=== PATIENT | female | born 1980 | race Hispanic/Latino ===

== ENCOUNTER 2017-07-07 16:43 | Emergency (ER) | payer MEDICAID ==
[2017-07-07 16:53] VITALS: BP 119/67; PULSE 98; RESP 18; TEMP 99; O2SAT 99
--- NOTE | 2017-07-07 17:14 | ED PDOC ---
HPI: Back Time Seen by Provider: 07/07/17 17:00 Chief Complaint (Nursing): Back Pain Chief Complaint (Provider): Back Pain History Per: Patient History/Exam Limitations: no limitations Onset/Duration Of Symptoms: Days (x5 days) Additional Complaint(s): 37 y/o female presents to the emergency department with a complaint of lower back pain since 07/03/2017. Patient describes the pain as a knot in low back. She reports taking Advil around 10 am this morning but this did not help the pain. Patient denies radiation of pain, she denies any trauma or injury. Patient denies any history of lower back pain. No fever or chills, no dysuria or hematuria. Patient denies bowel or bladder dysfunction. Past Medical History Reviewed: Historical Data, Nursing Documentation, Vital Signs Vital Signs: Last Vital Signs Temp 99 F 07/07/17 16:50 Pulse 98 H 07/07/17 16:50 Resp 18 07/07/17 16:50 BP 119/67 07/07/17 16:50 Pulse Ox 99 07/07/17 16:50 - Medical History PMH: No Chronic Diseases - Surgical History Surgical History: (2) - Family History Family History: States: No Known Family Hx - Living Arrangements Living Arrangements: With Family - Social History Current smoker - smoking cessation education provided: Yes Alcohol: None Drugs: Denies - Home Medications Home Medications: Ambulatory Orders Medication Instructions Recorded Cyclobenzaprine [Cyclobenzaprine 10 mg PO TID PRN #20 tab 07/07/17 HCl] Naproxen [Naprosyn] 500 mg PO BID #20 tab 07/07/17 - Allergies Allergies/Adverse Reactions: Allergies Allergy/AdvReac Type Severity Reaction Status Date / Time shrimp Allergy RASH Verified 07/07/17 16:53 Review of Systems ROS Statement: Except As Marked, All Systems Reviewed And Found Negative Constitutional: Negative for: Fever Gastrointestinal: Negative for: Nausea, Vomiting, Abdominal Pain Genitourinary Female: Negative for: Dysuria, Frequency, Incontinence, Hematuria Musculoskeletal: Positive for: Back Pain (lower, no radiation of pain) Physical Exam - Reviewed Nursing Documentation Reviewed: Yes Vital Signs Reviewed: Yes - Physical Exam Appears: Positive for: Well, Non-toxic, Uncomfortable Head Exam: Positive for: ATRAUMATIC, NORMAL INSPECTION, NORMOCEPHALIC Skin: Positive for: Warm, Dry Neck: Positive for: Normal, Painless ROM Cardiovascular/Chest: Positive for: Regular Rate, Rhythm Respiratory: Positive for: Normal Breath Sounds Back: Positive for: Other (Tenderness along midline and lumbar spine region. No step off noted, negative bilateral straight leg raise, patient is able to heel and toe walk). Negative for: L CVA Tenderness, R CVA Tenderness Extremity: Positive for: Normal ROM. Negative for: Pedal Edema Neurologic/Psych: Positive for: Alert, Oriented (x3), Gait (steady) - Laboratory Results Urine POC: Negative - ECG O2 Sat by Pulse Oximetry: 99 (RA) Pulse Ox Interpretation: Normal - Other Rad L/S Spine x-ray X-Ray: Interpreted by Me, Viewed By Me X-Ray Interpretation: no fx, no dis Medical Decision Making Medical Decision Making: Time: 17:05 Initial Impression: Lower back pain Initial Plan: --Urine Preg --Tylenol 975 mg PO --Flexeril 10 mg PO --Toradol 30 mg IM --LS Spine x-ray Patient is aware of x-ray results, all questions answered. Patient reports improvement of pain after meds given. Prescriptions given for Naprosyn and Flexeril. Patient was advised to follow up with primary doctor in 1-2 days for further evaluation. Scribe Attestation: Documented by Vicki Wilson, acting as a scribe for Peace Cheung PA-C. Provider Scribe Attestation: All medical record entries made by the Scribe were at my direction and personally dictated by me. I have reviewed the chart and agree that the record accurately reflects my personal performance of the history, physical exam, medical decision making, and the department course for this patient. I have also personally directed, reviewed, and agree with the discharge instructions and disposition. Disposition - Clinical Impression Clinical Impression: Back strain - Patient ED Disposition Is Patient to be Admitted: No Counseled Patient/Family Regarding: Studies Performed, Diagnosis, Need For Followup, Rx Given - Disposition [facility]errals: [facility] [Provider Group] Disposition: Routine/Home Disposition Time: 18:24 Condition: IMPROVED Additional Instructions: Rest as much as possible and avoid heavy lifting. Take prescription meds as directed as needed for pain. Follow-up with primary doctor in 1-2 days. Prescriptions: Cyclobenzaprine [Cyclobenzaprine HCl] 10 mg PO TID PRN #20 tab PRN Reason: Muscle Spasm Naproxen [Naprosyn] 500 mg PO BID #20 tab Instructions: Back Pain (ED), Muscle Strain (ED) Forms: [employer] ([place])
--- NOTE | 2017-07-07 17:54 | RAD ---
PROCEDURE: Radiographs of the Lumbar Spine. HISTORY: low back pain COMPARISON: None available. FINDINGS: BONES: Alignment appears satisfactory. No listhesis. No acute displaced fracture identified. DISC SPACES: Unremarkable. OTHER FINDINGS: None. IMPRESSION: No acute displaced fracture or subluxation identified.
== END 2017-07-07 18:49 | disposition home or self-care (01) ==
LOC: H.ER 16:43
DX: M54.5 Low back pain (principal)
CPT/HCPCS: 72100; 81025; 96372; 99282; J1885

== ENCOUNTER 2017-11-19 11:50 | Emergency (ER) | payer MEDICAID ==
[2017-11-19 12:25] VITALS: O2SAT 100
--- NOTE | 2017-11-19 13:22 | ED PDOC ---
HPI: Back Time Seen by Provider: 11/19/17 12:28 Chief Complaint (Nursing): Back Pain Chief Complaint (Provider): Back pain History Per: Patient Additional Complaint(s): pt. into ER c/o lower back pain radiating into lt. leg x 2 weeks. pt. states she has noted intermittent numbness to lt. leg since saturday. no bowel or bladder dysfunction Past Medical History Reviewed: Nursing Documentation, Vital Signs Vital Signs: Last Vital Signs Temp 98.3 F 11/19/17 12:22 Pulse 100 H 11/19/17 12:22 Resp 19 11/19/17 12:22 BP 110/76 11/19/17 12:22 Pulse Ox 100 11/19/17 12:22 - Medical History PMH: No Chronic Diseases - Surgical History Surgical History: (2) - Family History Family History: States: Unknown Family Hx - Living Arrangements Living Arrangements: With Family - Social History Current smoker - smoking cessation education provided: No Alcohol: None Drugs: Denies - Home Medications Home Medications: Ambulatory Orders Medication Instructions Recorded Cyclobenzaprine [Cyclobenzaprine 10 mg PO TID PRN #20 tab 07/07/17 HCl] Naproxen [Naprosyn] 500 mg PO BID #20 tab 07/07/17 Cyclobenzaprine [Cyclobenzaprine 10 mg PO TID #20 tab 11/19/17 HCl] Ibuprofen [Motrin] 600 mg PO Q6 #20 tab 11/19/17 oxyCODONE/Acetaminophen [Percocet 1 ea PO Q6 PRN #5 tab 11/19/17 5/325 mg Tab] - Allergies Allergies/Adverse Reactions: Allergies Allergy/AdvReac Type Severity Reaction Status Date / Time shrimp Allergy RASH Verified 11/19/17 12:22 Review of Systems ROS Statement: Except As Marked, All Systems Reviewed And Found Negative Musculoskeletal: Positive for: Back Pain Physical Exam - Reviewed Nursing Documentation Reviewed: Yes Vital Signs Reviewed: Yes - Physical Exam Appears: Positive for: Well, Non-toxic, No Acute Distress Head Exam: Positive for: ATRAUMATIC, NORMAL INSPECTION, NORMOCEPHALIC Skin: Positive for: Normal Color, Warm, DRY Eye Exam: Positive for: EOMI, Normal appearance, PERRL ENT: Positive for: Normal ENT Inspection Neck: Positive for: Normal, Painless ROM Cardiovascular/Chest: Positive for: Regular Rate, Rhythm Respiratory: Positive for: CNT, Normal Breath Sounds Gastrointestinal/Abdominal: Positive for: Normal Exam, Bowel Sounds, Soft Back: Positive for: Normal Inspection, Vertebral Tenderness (LS spine), Other ( LS paraspinal tendenress) Extremity: Positive for: Normal ROM Neurologic/Psych: Positive for: Alert, Oriented - ECG O2 Sat by Pulse Oximetry: 100 Medical Decision Making Medical Decision Making: LS spine: NAD, as read by LAURE Pt medicated for pain, reports feeling greatly improved on re-eval able to ambulate with steady gait asking to go home Disposition - Clinical Impression Clinical Impression: Sciatica - Patient ED Disposition Is Patient to be Admitted: No - Disposition Disposition: Routine/Home Disposition Time: 14:00 Condition: STABLE Prescriptions: Cyclobenzaprine [Cyclobenzaprine HCl] 10 mg PO TID #20 tab Ibuprofen [Motrin] 600 mg PO Q6 #20 tab oxyCODONE/Acetaminophen [Percocet 5/325 mg Tab] 1 ea PO Q6 PRN #5 tab PRN Reason: Pain, Severe (8-10) Instructions: Sciatica (DC) Forms: [employer]) (Icelandic), [facility] ED School/Work Excuse
[2017-11-19] MEDS ORDERED: Oxycodone/Acetaminophen 5/325 mg Tab ONE (13:43)
[2017-11-19] MEDS: Oxycodone/Acetaminophen 5/325 mg Tab PO STA (13:50)
--- NOTE | 2017-11-19 14:07 | RAD ---
PROCEDURE: Radiographs of the Lumbar Spine. HISTORY: pain COMPARISON: No prior. FINDINGS: BONES: Normal alignment. No listhesis. No fracture. DISC SPACES: Unremarkable. OTHER FINDINGS: None. IMPRESSION: Unremarkable radiographs of the lumbar spine.
[2017-11-19 14:58] VITALS: BP 122/70; PULSE 76; RESP 18; TEMP 98
== END 2017-11-19 15:18 | disposition home or self-care (01) ==
LOC: H.ER 11:50
DX: M54.32 Sciatica, left side (principal)

== ENCOUNTER 2018-03-09 17:53 | Emergency (ER) | payer MEDICAID ==
[2018-03-09 17:59] VITALS: BP 110/69; RESP 16; TEMP 97.7; O2SAT 99
--- NOTE | 2018-03-09 18:13 | ED PDOC ---
Upper Extremity Pain/Injury Time Seen by Provider: 03/09/18 18:03 Chief Complaint (Nursing): Upper Extremity Problem/Injury Chief Complaint (Provider): right wrist pain History Per: Patient Additional Complaint(s): 37 y/o right hand dominant female presents with pain to right wrist and forearm for the past 3 days. She denies trauma or injury but states she does lifting and repetitive motions at work. 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 Patient took 2 advil yesterday but this did not help the pain. She denies numbness or tingling to affected area. PMD: [place] Past Medical History Reviewed: Historical Data, Nursing Documentation, Vital Signs Vital Signs: Last Vital Signs Temp 97.7 F 03/09/18 17:56 Pulse 100 H 03/09/18 17:56 Resp 16 03/09/18 17:56 BP 110/69 03/09/18 17:56 Pulse Ox 99 03/09/18 17:56 - Medical History PMH: No Chronic Diseases - Surgical History Surgical History: (2) Other surgeries: tubal ligation - Family History Family History: States: No Known Family Hx - Living Arrangements Living Arrangements: With Family - Social History Current smoker - smoking cessation education provided: Yes Alcohol: None Drugs: Denies - Home Medications Home Medications: Ambulatory Orders Medication Instructions Recorded Cyclobenzaprine [Cyclobenzaprine 10 mg PO TID PRN #20 tab 07/07/17 HCl] Naproxen [Naprosyn] 500 mg PO BID #20 tab 07/07/17 Cyclobenzaprine [Cyclobenzaprine 10 mg PO TID #20 tab 11/19/17 HCl] Ibuprofen [Motrin] 600 mg PO Q6 #20 tab 11/19/17 oxyCODONE/Acetaminophen [Percocet 1 ea PO Q6 PRN #5 tab 11/19/17 5/325 mg Tab] Cyclobenzaprine [Cyclobenzaprine 10 mg PO TID PRN #20 tab 03/09/18 HCl] Naproxen [Naprosyn] 500 mg PO BID #20 tab 03/09/18 - Allergies Allergies/Adverse Reactions: Allergies Allergy/AdvReac Type Severity Reaction Status Date / Time shrimp Allergy RASH Verified 03/09/18 17:55 Review of Systems ROS Statement: Except As Marked, All Systems Reviewed And Found Negative Constitutional: Negative for: Fever Cardiovascular: Negative for: Chest Pain Respiratory: Negative for: Shortness of Breath Musculoskeletal: Positive for: Other (right wrist pain) Physical Exam - Reviewed Nursing Documentation Reviewed: Yes Vital Signs Reviewed: Yes - Physical Exam Appears: Positive for: Well, Non-toxic, No Acute Distress Skin: Positive for: Normal Color. Negative for: Rash Eye Exam: Positive for: Normal appearance Neck: Positive for: Normal Extremity: Positive for: Tenderness (Tendeness to right wrist dorsally with no snuff box tenderness, strong right hand software sales executive). Negative for: Deformity Neurologic/Psych: Positive for: Alert, Oriented - Laboratory Results Urine POC: Negative (patient declined test, she has tubal ligation and denies possibility of ) - ECG O2 Sat by Pulse Oximetry: 99 Pulse Ox Interpretation: Normal - Other Rad right wrist x-ray X-Ray: Interpreted by Me, Viewed By Me X-Ray Interpretation: no fx, no dis Medical Decision Making Medical Decision Makin37 y/o female with right wrist pain Plan: IM toradol X-ray right wrist Patient aware of x-ray results. All questions answered. Velcro splint applied. Advised ice, rest, elevation. Rx naprosyn and flexeril given. Patient was referred to ortho operations research analyst for follow up. Procedures - Splinting Location: right wrist Pre-Made Type: velcro Pre-Proc Neuro Vasc Exam: normal Post-Proc Neuro Vasc Exam: normal Disposition - Clinical Impression Clinical Impression: Right wrist tendinitis - Patient ED Disposition Is Patient to be Admitted: No Counseled Patient/Family Regarding: Studies Performed, Diagnosis, Need For Followup, Rx Given, Smoking Cessation - Disposition Referrals: Saqib Troy III, MD [Staff Provider] - Disposition: Routine/Home Disposition Time: 18:19 Condition: STABLE Additional Instructions: Ice, rest and elevate affected area. Take rx meds as directed as needed for pain. Follow up with orthopedist or primary care doctor for any persistent symptoms. Prescriptions: Cyclobenzaprine [Cyclobenzaprine HCl] 10 mg PO TID PRN #20 tab PRN Reason: Muscle Spasm Naproxen [Naprosyn] 500 mg PO BID #20 tab Instructions: Wrist Sprain (DC), Tendonitis (DC) Forms: [employer] (Kazakh), [facility] ED School/Work Excuse
[2018-03-09 18:43] VITALS: PULSE 92
--- NOTE | 2018-03-10 08:49 | RAD ---
PROCEDURE: Right Wrist Radiographs. HISTORY: pain COMPARISON: None. FINDINGS: BONES: No acute fracture or destructive bony lesion identified. JOINTS: Normal. No dislocation. SOFT TISSUES: Normal. OTHER FINDINGS: None. IMPRESSION: Unremarkable right wrist radiographs.
== END 2018-03-09 18:42 | disposition home or self-care (01) ==
LOC: H.ER 17:53
DX: M65.841 Other synovitis and tenosynovitis, right hand (principal)
CPT/HCPCS: 29125; 73110; 96372; 99283; J1885

== ENCOUNTER 2018-06-22 17:32 | Emergency (ER) | payer MEDICAID ==
[2018-06-22] MEDS ORDERED: Albuterol-Ipratrop 3 mg / 0.5 (3 ml) UD INH STA (18:08)
--- NOTE | 2018-06-22 18:15 | ED PDOC ---
HPI: SOB/CHF/COPD Time Seen by Provider: 06/22/18 17:46 Chief Complaint (Nursing): Shortness Of Breath Chief Complaint (Provider): Shortness Of Breath History Per: Patient History/Exam Limitations: no limitations Onset/Duration Of Symptoms: Days (x3) Current Symptoms Are (Timing): Still Present Additional Complaint(s): 38 year old female with no significant past medical history presents to the ED with chest congestion onset . Patient reports she began feeling shortness of breath today. She admits to being a smoker, but denies cough, fever , chest pain, or any other medical complaints. Patient was given nebulizer treatments when she was younger. PMD: [place] Past Medical History Reviewed: Historical Data, Nursing Documentation, Vital Signs Vital Signs: Last Vital Signs Temp 98.4 F 06/22/18 22:07 Pulse 78 06/22/18 22:07 Resp 16 06/22/18 22:07 BP 102/60 06/22/18 22:07 Pulse Ox 100 06/23/18 02:57 - Medical History PMH: No Chronic Diseases - Surgical History Surgical History: (2) - Family History Family History: States: Unknown Family Hx - Social History Current smoker - smoking cessation education provided: Yes Ex-Smoker (has not smoked in the last 12 months): No - Home Medications Home Medications: Ambulatory Orders Medication Instructions Recorded Cyclobenzaprine [Cyclobenzaprine 10 mg PO TID PRN #20 tab 07/07/17 HCl] Naproxen [Naprosyn] 500 mg PO BID #20 tab 07/07/17 Cyclobenzaprine [Cyclobenzaprine 10 mg PO TID #20 tab 11/19/17 HCl] Ibuprofen [Motrin] 600 mg PO Q6 #20 tab 11/19/17 oxyCODONE/Acetaminophen [Percocet 1 ea PO Q6 PRN #5 tab 11/19/17 5/325 mg Tab] Cyclobenzaprine [Cyclobenzaprine 10 mg PO TID PRN #20 tab 03/09/18 HCl] Naproxen [Naprosyn] 500 mg PO BID #20 tab 03/09/18 Albuterol HFA [Ventolin HFA 90 2 puff IH [id number] #1 inh 06/22/18 mcg/actuation (8 g)] Docusate Sodium [Colace] 100 mg PO BID #60 capsule 06/22/18 Ferrous Sulfate 325 mg PO BID #60 tablet 06/22/18 - Allergies Allergies/Adverse Reactions: Allergies Allergy/AdvReac Type Severity Reaction Status Date / Time shrimp Allergy RASH Verified 06/22/18 17:42 Review of Systems ROS Statement: Except As Marked, All Systems Reviewed And Found Negative Constitutional: Negative for: Fever Cardiovascular: Positive for: Other (chest congestion ). Negative for: Chest Pain Respiratory: Positive for: Shortness of Breath. Negative for: Cough Physical Exam - Reviewed Nursing Documentation Reviewed: Yes Vital Signs Reviewed: Yes - Physical Exam Appears: Positive for: Well, Non-toxic, No Acute Distress Head Exam: Positive for: ATRAUMATIC, NORMOCEPHALIC Skin: Positive for: Normal Color, Warm, Dry Eye Exam: Positive for: Normal appearance, EOMI, PERRL Neck: Positive for: Normal Cardiovascular/Chest: Positive for: Regular Rate, Rhythm. Negative for: Murmur Respiratory: Positive for: Normal Breath Sounds. Negative for: Respiratory Distress Gastrointestinal/Abdominal: Positive for: Normal Exam, Soft. 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 Negative for: Pedal Edema, Deformity Neurologic/Psych: Positive for: Alert, Oriented (x3), Other (patient is able to speak in full sentences) - Laboratory Results Result Diagrams: 06/22/18 18:44 06/22/18 18:44 - ECG Interpretation Of ECG: NSR @ 92, no ST-T changes. O2 Sat by Pulse Oximetry: 99 (RA) Pulse Ox Interpretation: Normal Medical Decision Making Medical Decision Making: Time: 1756 Initial Impression: Dyspnea and bronchitis Initial Plan: --EKG --CMP --Urine preg --Urine dip --CBC with differentials --D Dimer --PTT --Prothrombin time --CXR --Duoneb 3 ml INH --Peak flow pre/post treatment CXR: Pending. Scribe Attestation: Documented by Adriana Bustillo, acting as a scribe for Eli Maciel MD Provider Scribe Attestation: All medical record entries made by the Scribe were at my direction and personally dictated by me. I have reviewed the chart and agree that the record accurately reflects my personal performance of the history, physical exam, medical decision making, and the department course for this patient. I have also personally directed, reviewed, and agree with the discharge instructions and disposition. Disposition - Clinical Impression Clinical Impression: Symptomatic anemia - Patient ED Disposition Is Patient to be Admitted: Yes - Disposition Disposition Time: 19:51 Condition: STABLE - Pt Status Changed To: Hospital Disposition Of: Observation - POA Present On Arrival: None
[2018-06-22] MEDS ORDERED: Albuterol-Ipratrop 3 mg / 0.5 (3 ml) UD ONE (18:19)
[2018-06-22 18:49] LABS: BASO # 0.1 K/uL (0.0-0.2); BASO % 0.6 % (0.0-2.0); EOS # 0.2 K/uL (0.0-0.7); HEMOGLOBIN 8.6 g/dL (12.0-16.0); LYMPH # 2.3 K/uL (1.0-4.3); LYMPH % 25.2 % (20.0-40.0); MEAN CELL VOLUME 66.1 fl (81.0-99.0); MEAN CORPUSCULAR HEMOGLOBIN 20.1 pg (27.0-31.0); MEAN CORPUSCULAR HGB CONC 30.4 g/dL (33.0-37.0); MEAN PLATELET VOLUME 9.5 fl (7.2-11.7); MONO # 0.8 K/uL (0.0-0.8); MONO % 8.5 % (0.0-10.0); NEUT # 5.7 K/uL (1.8-7.0); NEUT % 63.7 % (50.0-75.0); RBC 4.29 Mil/uL (3.80-5.20); RED CELL DISTRIBUTION WIDTH 17.9 % (11.5-14.5)
[2018-06-22 18:58] LABS: PROTHROMBIN TIME 11.3 Seconds (9.8-13.1)
[2018-06-22 19:00] LABS: ALB/GLOB RATIO 1.3 (1.0-2.1); ALBUMIN 3.9 g/dL (3.5-5.0); ALT/SGPT 28 U/L (9-52); AST/SGOT 24 U/L (14-36); BLOOD UREA NITROGEN 18 mg/dl (7-17); CALCIUM 9.2 mg/dL (8.4-10.2); GFR NON-AFRICAN AMERICAN > 60; PARTIAL THROMBOPLASTIN TIME 29.1 Seconds (25.6-37.1)
[2018-06-22 19:01] LABS: D DIMER < 200 ng/mlDDU (0-230)
[2018-06-22 20:50] VITALS: RESP 16
[2018-06-22] MEDS ORDERED: Albuterol-Ipratrop 3 mg / 0.5 (3 ml) UD INH PRN (20:59)
[2018-06-22 22:10] VITALS: BP 102/60; PULSE 78; TEMP 98.4
--- NOTE | 2018-06-22 22:53 | ED PDOC ---
- Laboratory Results Result Diagrams: 06/22/18 18:44 06/22/18 18:44 - ECG O2 Sat by Pulse Oximetry: 100 - Progress Re-evaluation Time: 22:00 Condition: Re-examined, Improved Medical Decision Making Medical Decision Makin Patient is feeling improved and wishes to go home. [id number] Per Yann Schumacher patient does not go to [facility]. Disposition Doctor Will See Patient In The: Office Counseled Patient/Family Regarding: Studies Performed, Diagnosis - Clinical Impression Clinical Impression: Bronchitis, Anemia - POA Present On Arrival: None - Disposition Disposition: AGAINST MEDICAL ADVICE Disposition Time: 22:05 Condition: GOOD Against Medical Advice - AMA Patient Left Against Medical Advice: The patient declines admission to the hospital and wishes to leave the Emergency Department. This action is against my medical advice. This decision was made with informed refusal. The patient was told that admission to the hospital is necessary. Explanation of the reasons why were discussed. The risks of leaving were explained to the patient and include, but are not limited to, worsening of known or currently unknown conditions, permanent disability and from undiagnosed or untreated conditions. The patient has the capacity to make this informed decision and understands my explanation of the current medical problem and risks of leaving. The patient voluntarily accepts these risks and signed an AMA form documenting our conversation. The patient was given the opportunity to ask questions and reconsider. The patient was encouraged to return to the Emergency Department at any time for further care.
--- NOTE | 2018-06-23 08:45 | RAD ---
Date of service: 06/22/2018 HISTORY: SOB COMPARISON: No prior. FINDINGS: LUNGS: No active pulmonary disease. PLEURA: No significant pleural effusion identified, no pneumothorax apparent. CARDIOVASCULAR: Normal. OSSEOUS STRUCTURES: No significant abnormalities. VISUALIZED UPPER ABDOMEN: Normal. OTHER FINDINGS: None. IMPRESSION: No acute cardiopulmonary disease appreciated.
[2018-06-23] MEDS ORDERED: guaiFENesin-DM 600-30 mg ER Tab PO SCH (09:00)
--- NOTE | 2018-06-23 09:27 | CARD ---
APPROVED REPORT Date of service: 06/22/2018 <Conclusion> Normal sinus rhythm Normal ECG
[2018-06-23 14:40] VITALS: O2SAT 99
== END 2018-06-22 23:14 | disposition left against medical advice (07) ==
LOC: H.ER 17:32 → UNDOADMIN 19:51 → H.ERHOLD 19:51 → UNDODISIN 23:14
DX: D64.9 Anemia, unspecified (principal); J40 Bronchitis, not specified as acute or chronic

== ENCOUNTER 2018-08-02 17:59 | Emergency (ER) | payer SELFPAY ==
[2018-08-02 18:04] VITALS: BP 149/75; PULSE 103; RESP 16; TEMP 96.7; O2SAT 98
[2018-08-02] MEDS ORDERED: Oxycodone/Acetaminophen 5/325 mg Tab PO STA (18:25)
--- NOTE | 2018-08-02 18:30 | ED PDOC ---
HPI: Dental Pain/Injury Time Seen by Provider: 08/02/18 18:04 Chief Complaint (Nursing): Dental Pain Chief Complaint (Provider): Left lower dental pain x 2 days History Per: Patient History/Exam Limitations: no limitations Onset/Duration Of Symptoms: Days (2) Current Symptoms Are (Timing): Still Present Additional Complaint(s): 38 yo female presents for evaluation of left lower dental pain x 2 days. Pt states she was seen by an oral surgeon 2 weeks ago and had one tooth extracted from the area. Pt states they were going to extract a second in the lower left however she began to feel pain and they stopped. Pt reports pain for 2 days. Pt states she was taking motrin but it did not help. No motrin today for pain. No fever/chills. No drainage. Past Medical History Reviewed: Historical Data, Nursing Documentation, Vital Signs Vital Signs: Last Vital Signs Temp 96.7 F L 08/02/18 18:02 Pulse 103 H 08/02/18 18:02 Resp 16 08/02/18 18:02 BP 149/75 08/02/18 18:02 Pulse Ox 98 08/02/18 18:02 - Medical History PMH: No Chronic Diseases - Surgical History Surgical History: (2) - Family History Family History: States: Unknown Family Hx - Living Arrangements Living Arrangements: With Family - Social History Current smoker - smoking cessation education provided: No Alcohol: None - Home Medications Home Medications: Ambulatory Orders Medication Instructions Recorded Cyclobenzaprine [Cyclobenzaprine 10 mg PO TID PRN #20 tab 07/07/17 HCl] Naproxen [Naprosyn] 500 mg PO BID #20 tab 07/07/17 Cyclobenzaprine [Cyclobenzaprine 10 mg PO TID #20 tab 11/19/17 HCl] Ibuprofen [Motrin] 600 mg PO Q6 #20 tab 11/19/17 oxyCODONE/Acetaminophen [Percocet 1 ea PO Q6 PRN #5 tab 11/19/17 5/325 mg Tab] Cyclobenzaprine [Cyclobenzaprine 10 mg PO TID PRN #20 tab 03/09/18 HCl] Naproxen [Naprosyn] 500 mg PO BID #20 tab 03/09/18 Albuterol HFA [Ventolin HFA 90 2 puff IH [id number] #1 inh 06/22/18 mcg/actuation (8 g)] Docusate Sodium [Colace] 100 mg PO BID #60 capsule 06/22/18 Ferrous Sulfate 325 mg PO BID #60 tablet 06/22/18 Amoxicillin/Clavulanate [Augmentin 1 tab PO BID #20 tab 08/02/18 875 MG-125 MG] oxyCODONE/Acetaminophen [Percocet 1 ea PO Q6H PRN #10 tab 08/02/18 5/325 mg Tab] - Allergies Allergies/Adverse Reactions: Allergies Allergy/AdvReac Type Severity Reaction Status Date / Time shrimp Allergy RASH Verified 08/02/18 18:02 Review of Systems ROS Statement: Except As Marked, All Systems Reviewed And Found Negative Constitutional: Negative for: Fever, Chills ENT: Negative for: Ear Pain, Throat Pain Gastrointestinal: Negative for: Nausea, Vomiting, Abdominal Pain, Diarrhea Physical Exam - Reviewed Nursing Documentation Reviewed: Yes Vital Signs Reviewed: Yes - Physical Exam Appears: Positive for: Well, Non-toxic, No Acute Distress Head Exam: Positive for: ATRAUMATIC, NORMAL INSPECTION, NORMOCEPHALIC Skin: Positive for: Normal Color, Warm, DRY ENT: Positive for: Other ((+) dental decay, left lower; no abscess formation ). Negative for: Normal ENT Inspection Neck: Positive for: Normal Cardiovascular/Chest: Negative for: Bradycardia, Tachycardia Respiratory: Negative for: Accessory Muscle Use, Respiratory Distress Back: Positive for: Normal Inspection Extremity: Positive for: Normal ROM Neurologic/Psych: Positive for: Alert, Oriented, Gait - ECG O2 Sat by Pulse Oximetry: 98 Disposition - Clinical Impression Clinical Impression: Dental caries - Patient ED Disposition Is Patient to be Admitted: No Counseled Patient/Family Regarding: Diagnosis, Need For Followup, Rx Given - Disposition [facility]] Disposition: Routine/Home Disposition Time: 18:26 Condition: GOOD Prescriptions: Amoxicillin/Clavulanate [Augmentin 875 MG-125 MG] 1 tab PO BID #20 tab oxyCODONE/Acetaminophen [Percocet 5/325 mg Tab] 1 ea PO Q6H PRN #10 tab PRN Reason: Pain, Severe (8-10) Instructions: Tooth Decay, Adult, Dental Pain
[2018-08-02] MEDS ORDERED: Oxycodone/Acetaminophen 5/325 mg Tab ONE (18:33)
== END 2018-08-02 18:54 | disposition home or self-care (01) ==
LOC: H.ER 17:59
DX: K02.9 Dental caries, unspecified (principal)

== ENCOUNTER 2018-09-21 22:53 | Emergency (ER) | payer SELFPAY ==
[2018-09-21 22:59] VITALS: TEMP 97.7
--- NOTE | 2018-09-21 23:04 | ED PDOC ---
HPI: Back Time Seen by Provider: 09/21/18 22:59 Chief Complaint (Nursing): Back Pain Chief Complaint (Provider): Back Pain History Per: Patient History/Exam Limitations: no limitations Onset/Duration Of Symptoms: Days (since yesterday morning) Current Symptoms Are (Timing): Still Present Quality Of Discomfort: Aching Additional Complaint(s): Patient is a 38 year old female who presets to the ED for evaluation of right lower back/side pain radiating to the groin/hip and down the right lower extremity. 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 Patient denies any trauma or falls. Patient denies: fever, N/V/D, urinary symptoms, hematuria, history of renal colic, abdominal pain, chest pain, SOB/cough, rash, numbness/weakness, saddle anesthesia, incontinence, paresthesias. PMD: none LMP 2 weeks ago Past Medical History Reviewed: Historical Data, Nursing Documentation, Vital Signs Vital Signs: Last Vital Signs Temp 97.7 F 09/21/18 22:56 Pulse 104 H 09/21/18 22:56 Resp 16 09/21/18 22:56 BP 122/77 09/21/18 22:56 Pulse Ox 97 09/21/18 22:56 - Medical History PMH: No Chronic Diseases - Surgical History Surgical History: (2) - Family History Family History: States: Unknown Family Hx - Social History Current smoker - smoking cessation education provided: Yes (1/2 ppd) Drugs: Denies - Home Medications Home Medications: Ambulatory Orders Medication Instructions Recorded Cyclobenzaprine [Cyclobenzaprine 10 mg PO TID PRN #20 tab 07/07/17 HCl] Naproxen [Naprosyn] 500 mg PO BID #20 tab 07/07/17 Cyclobenzaprine [Cyclobenzaprine 10 mg PO TID #20 tab 11/19/17 HCl] Ibuprofen [Motrin] 600 mg PO Q6 #20 tab 11/19/17 oxyCODONE/Acetaminophen [Percocet 1 ea PO Q6 PRN #5 tab 11/19/17 5/325 mg Tab] Cyclobenzaprine [Cyclobenzaprine 10 mg PO TID PRN #20 tab 03/09/18 HCl] Naproxen [Naprosyn] 500 mg PO BID #20 tab 03/09/18 Docusate Sodium [Colace] 100 mg PO BID #60 capsule 06/22/18 RX: Albuterol HFA [Ventolin HFA 90 2 puff IH [id number] #1 inh 06/22/18 mcg/actuation (8 g)] RX: Ferrous Sulfate 325 mg PO BID #60 tablet 06/22/18 Amoxicillin/Clavulanate [Augmentin 1 tab PO BID #20 tab 08/02/18 875 MG-125 MG] oxyCODONE/Acetaminophen [Percocet 1 ea PO Q6H PRN #10 tab 08/02/18 5/325 mg Tab] Cyclobenzaprine [Cyclobenzaprine 10 mg PO Q8 PRN #12 tab 09/22/18 HCl] RX: Naproxen 500 mg PO BID PRN #20 tab 09/22/18 - Allergies Allergies/Adverse Reactions: Allergies Allergy/AdvReac Type Severity Reaction Status Date / Time shrimp Allergy RASH Verified 08/02/18 18:02 Review of Systems ROS Statement: Except As Marked, All Systems Reviewed And Found Negative Constitutional: Negative for: Fever Cardiovascular: Negative for: Chest Pain Gastrointestinal: Negative for: Nausea, Vomiting, Diarrhea Genitourinary Female: Negative for: Dysuria, Hematuria Musculoskeletal: Positive for: Back Pain (right) Neurological: Negative for: Weakness, Numbness Physical Exam - Reviewed Nursing Documentation Reviewed: Yes Vital Signs Reviewed: Yes - Physical Exam Appears: Positive for: Well, Non-toxic, No Acute Distress Head Exam: Positive for: ATRAUMATIC, NORMOCEPHALIC Skin: Positive for: Normal Color, Warm, Dry Eye Exam: Positive for: Normal appearance ENT: Positive for: Other (Mucus membranes moist. Airway patent (-) stridor. ) Neck: Positive for: Painless ROM, Supple Cardiovascular/Chest: Positive for: Regular Rate, Rhythm Respiratory: Positive for: Normal Breath Sounds Gastrointestinal/Abdominal: Positive for: Soft, Other (right flank tenderness). Negative for: Tenderness, Distended, Guarding Back: Positive for: Other (right paralumbar tenderness). Negative for: L CVA Tenderness, R CVA Tenderness, Vertebral Tenderness Extremity: Positive for: Normal ROM. Negative for: Deformity Neurologic/Psych: Positive for: Alert, Oriented (x3), Gait (steady in ED). Negative for: Motor/Sensory Deficits, Aphasia, Facial Droop - Laboratory Results Urine POC: Negative Urine dip results: Positive for: Leukocyte Esterase (trace), Ketones (trace), Protein (trace). Negative for: Blood, Nitrate, Glucose, Bilirubin - ECG O2 Sat by Pulse Oximetry: 97 (RA) Pulse Ox Interpretation: Normal Medical Decision Making Medical Decision Making: Initial Impression: back/flank pain Plan: -Upreg -Udip -UDS -Toradol 15mg IM -Flexeril 10mg PO (not driving home) -Re-evaluation 5 Udip reviewed. U/A and U/C ordered. 0005 Repeat HR: 96 U/A unremarkable. On re-evaluation, patient reports improvement of symptoms. On exam, patient remains AAOx3, in no acute distress. Lungs clear to auscultation, cardiac RRR, abdomen soft, non-tender, repeat neuro exam shows no focal findings. Vitals stable. Lab/Diagnostic results d/w the patient in great detail. Diagnosis of acute back/flank pain d/w the patient. Based on history, exam and diagnostic results, plan will be for outpatient follow up with clinic. Patient instructed to follow-up with pmd / referral provided / the clinic in 1- 2 days without fail. Advised to take medication as prescribed. Return to the emergency room at any time for any new or worsening symptoms. Patient states she fully agrees with and understands discharge instructions. States that she agrees with the plan and disposition. Verbalized and repeated discharge instructions and plan. I have given the patient opportunity to ask any additional questions. Disposition - Clinical Impression Clinical Impression: Flank pain, Back pain - Patient ED Disposition Is Patient to be Admitted: No Counseled Patient/Family Regarding: Studies Performed, Diagnosis, Need For Followup, Rx Given - Disposition Referrals: [facility] [Outside] Corbin Doshi MD [Medical Doctor] - Disposition: Routine/Home Disposition Time: 00:05 Condition: STABLE Additional Instructions: The emergency medical care you received today was directed at your acute symptoms. If you were prescribed any medication, please fill it and take as directed. It may take several days for your symptoms to resolve. Return to the Emergency Department if your symptoms worsen, do not improve, or if you have any other problems. Please contact your doctor in 2 days for re-evaluation and follow up / or call one of the physicians/clinics you have been referred to that are listed on the Patient Visit Information form that is included in your discharge packet. Bring any paperwork you were given at discharge with you along with any medications you are taking to your follow up visit. Our treatment cannot replace ongoing medical care by a primary care provider (PCP) outside of the emergency department. Prescriptions: Cyclobenzaprine [Cyclobenzaprine HCl] 10 mg PO Q8 PRN #12 tab PRN Reason: Muscle Spasm RX: Naproxen 500 mg PO BID PRN #20 tab PRN Reason: Pain, Moderate (4-7) Instructions: Low Back Pain (DC), Flank Pain, Muscle Spasms (DC), Muscle and Bone Pain (DC) Forms: etouches (Mauritian) Print Language: CHINESE - POA Present On Arrival: None Results - Lab Results Lab Results: 09/21/18 09/21/18 23:30 23:30 Urine Color Yellow Urine Clarity Cloudy Urine pH 8.0 Ur Specific Nixa 1.024 Urine Protein 30 Urine Glucose (UA) Neg Urine Ketones Negative Urine Blood Negative Urine Nitrate Negative Urine Bilirubin Negative Urine Urobilinogen 2.0 H Ur Leukocyte Esterase Negative Urine RBC (Auto) 2 Urine Microscopic WBC 3 Ur Squamous Epith Cells 3 Amorphous Sediment Rare H Urine Opiates Screen Negative Urine Methadone Screen Negative Ur Barbiturates Screen Negative Ur Phencyclidine Scrn Negative Ur Amphetamines Screen No result U Benzodiazepines Scrn Negative U Oth Cocaine Metabols Negative U Cannabinoids Screen Negative
[2018-09-21 23:41] LABS: SQUAMOUS EPITHIAL 3 /hpf (0-5); URINE AMORPHOUS SEDIMENT RARE /ul (<OCC); URINE BILIRUBIN NEGATIVE (NEGATIVE); URINE BLOOD NEGATIVE (NEGATIVE); URINE CLARITY CLOUDY (Clear); URINE COLOR YELLOW (YELLOW); URINE GLUCOSE (UA) NEG (NEGATIVE); URINE PROTEIN 30 mg/dL (NEGATIVE)
[2018-09-21 23:55] LABS: URINE LEUKOCYTE ESTERASE NEGATIVE Leu/uL (Negative)
[2018-09-21 23:56] LABS: BARBITURATES, UR NEGATIVE (NEGATIVE); BENZODIAZEPINES, UR NEGATIVE (NEGATIVE); OPIATES, UR NEGATIVE (NEGATIVE); PHENCYCLIDINE, UR NEGATIVE (NEGATIVE)
[2018-09-22 00:15] VITALS: BP 103/59; PULSE 96; RESP 18
[2018-09-24 17:06] VITALS: O2SAT 97
== END 2018-09-22 00:15 | disposition home or self-care (01) ==
LOC: H.ER 22:53
DX: R10.9 Unspecified abdominal pain (principal); M54.9 Dorsalgia, unspecified
CPT/HCPCS: 81003; 81025; 87086; 96372; 99283; G0480; J1885

== ENCOUNTER 2019-01-06 12:07 | Emergency (ER) | payer MEDICAID ==
[2019-01-06 12:12] VITALS: BMI 24.2
[2019-01-06 12:14] VITALS: BP 112/70; PULSE 95; RESP 17; TEMP 98.4; O2SAT 97
--- NOTE | 2019-01-06 15:00 | ED PDOC ---
Upper Extremity Pain/Injury Time Seen by Provider: 01/06/19 12:21 Chief Complaint (Nursing): Upper Extremity Problem/Injury Chief Complaint (Provider): Upper Extremity Problem/Injury History Per: Patient History/Exam Limitations: no limitations Onset/Duration Of Symptoms: Days (x1 week) Current Symptoms Are (Timing): Still Present Additional Complaint(s): Patient is a 38 year old female with no past medical history, who presents to the emergency department complaining of pain form left elbow to wrist that is worse with certain movements, onset was x1 week. 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 Patient further reports that pain is worse at work this morning when she was lifting a heavy box. She has been taking ibuprofen with minimal relief; her last dose at 7am today. Patient denies having any other injuries, decreased ROM, numbness or tingling, changes in skin color. She goes to the clinic right now but she has recently gotten insurance and will be going to [place]. Her LMP just ended. PMD: clinic/[place] Past Medical History Reviewed: Historical Data, Nursing Documentation, Vital Signs Vital Signs: Last Vital Signs Temp 98.4 F 01/06/19 12:12 Pulse 95 H 01/06/19 12:12 Resp 17 01/06/19 12:12 BP 112/70 01/06/19 12:12 Pulse Ox 97 01/06/19 12:12 - Medical History PMH: No Chronic Diseases - Surgical History Surgical History: (2) - Family History Family History: States: Unknown Family Hx - Home Medications Home Medications: Ambulatory Orders Medication Instructions Recorded Cyclobenzaprine [Cyclobenzaprine 10 mg PO TID PRN #20 tab 07/07/17 HCl] Naproxen [Naprosyn] 500 mg PO BID #20 tab 07/07/17 Cyclobenzaprine [Cyclobenzaprine 10 mg PO TID #20 tab 11/19/17 HCl] Ibuprofen [Motrin] 600 mg PO Q6 #20 tab 11/19/17 oxyCODONE/Acetaminophen [Percocet 1 ea PO Q6 PRN #5 tab 11/19/17 5/325 mg Tab] Cyclobenzaprine [Cyclobenzaprine 10 mg PO TID PRN #20 tab 03/09/18 HCl] Naproxen [Naprosyn] 500 mg PO BID #20 tab 06/10/18 Albuterol HFA [Ventolin HFA 90 2 puff IH [id number] #1 inh 06/22/18 mcg/actuation (8 g)] Docusate Sodium [Colace] 100 mg PO BID #60 capsule 06/22/18 Ferrous Sulfate 325 mg PO BID #60 tablet 06/22/18 Amoxicillin/Clavulanate [Augmentin 1 tab PO BID #20 tab 08/02/18 875 MG-125 MG] oxyCODONE/Acetaminophen [Percocet 1 ea PO Q6H PRN #10 tab 08/02/18 5/325 mg Tab] Cyclobenzaprine [Cyclobenzaprine 10 mg PO Q8 PRN #12 tab 09/22/18 HCl] Naproxen 500 mg PO BID PRN #20 tab 09/22/18 Naproxen 500 mg PO BID PRN #20 tab 01/06/19 - Allergies Allergies/Adverse Reactions: Allergies Allergy/AdvReac Type Severity Reaction Status Date / Time shrimp Allergy RASH Verified 08/02/18 18:02 Review of Systems ROS Statement: Except As Marked, All Systems Reviewed And Found Negative Musculoskeletal: Positive for: Other (left elbow and wrist pain) Physical Exam - Reviewed Nursing Documentation Reviewed: Yes Vital Signs Reviewed: Yes - Physical Exam Comments: GENERAL APPEARANCE: Patient is awake, alert, oriented x 3, in no acute distress. SKIN: Warm, dry; (-) cyanosis. (-) changes CHEST AND RESPIRATORY: (-) chest wall tenderness. Lungs: (-) rales, (-) rhonchi, (-) wheezes; breath sounds equal bilaterally. HEART AND CARDIOVASCULAR: (-) irregularity; (-) murmur, (-) gallop. EXTREMITIES: Left upper extremity: Distal pulses 2+, Capillary refill less than 2 seconds, (+) Full ROM, (+) good hand php developer strength, (+) mild lateral epicondyle tenderness; (+) pain with resisted extension of the wrist. (-) swelling, (-) skin changes, (-)deformity, motor and sensation intact NEURO AND PSYCH: Mental status as above. - ECG O2 Sat by Pulse Oximetry: 97 (RA) Pulse Ox Interpretation: Normal Medical Decision Making Medical Decision Making: Time: 1226 initial impression: lateral epicondylitis Plan: --Toradol 30 mg IM Time: 1325 --Patient is feeling better. --Informed patient about epicondylitis, pt with repetitive movements at work, pain with resisted wrist extension, consistent with lateral epicondylitis --Discussed with patient on rest, ice, elevation, NSAIDs, and exercises. Discussed diagnosis, treatment, return precautions and f/u with pt who is understanding, in agreement and stable for dc ---- Scribe Attestation: Documented by Pierce Dale acting as a scribe for Bentley Gonzales PA-C. Provider Scribe Attestation: All medical record entries made by the Scribe were at my direction and personally dictated by me. I have reviewed the chart and agree that the record accurately reflects my personal performance of the history, physical exam, medical decision making, and the department course for this patient. I have also personally directed, reviewed, and agree with the discharge instructions and disposition. Disposition - Clinical Impression Clinical Impression: Epicondylitis - Patient ED Disposition Is Patient to be Admitted: No Counseled Patient/Family Regarding: Studies Performed, Diagnosis, Need For Followup, Rx Given - Disposition Referrals: [facility] [Provider Group] [facility] [Outside] Disposition: Routine/Home Disposition Time: 13:25 Condition: STABLE Additional Instructions: Return to ED for new or worsening symptoms, fever >100.4, changes in skin color, unable to move. Follow up with your primary doctor in 3-5 days. Rest, ice and elevate arm. Take Naproxen as prescribed. Prescriptions: Naproxen 500 mg PO BID PRN #20 tab PRN Reason: Pain, Moderate (4-7) Instructions: Lateral Epicondylitis, Lateral Epicondylitis Exercises, Elbow Tendinopathy (Tennis and Golf Elbow) Forms: [employer] (Occitan), [facility] ED School/Work Excuse Print Language: BULGARIAN - POA Present On Arrival: None
== END 2019-01-06 13:44 | disposition home or self-care (01) ==
LOC: H.ER 12:07
DX: M77.12 Lateral epicondylitis, left elbow (principal); X50.0XXA Overexertion from strenuous movement or load, initial encounter; Y99.0 Civilian activity done for income or pay
CPT/HCPCS: 81025; 96372; 99283; J1885

== ENCOUNTER 2019-01-24 12:28 | Emergency (ER) | payer MEDICAID ==
[2019-01-24 12:28] VITALS: BMI 24.2
[2019-01-24 12:45] VITALS: BP 112/69; PULSE 90; RESP 18; TEMP 98.6; O2SAT 99
--- NOTE | 2019-01-24 14:02 | ED PDOC ---
Upper Extremity Pain/Injury Time Seen by Provider: 01/24/19 12:45 Chief Complaint (Nursing): Finger,Hand,&Wrist Chief Complaint (Provider): Finger,Hand,&Wrist History Per: Patient History/Exam Limitations: no limitations Onset/Duration Of Symptoms: Hrs Current Symptoms Are (Timing): Still Present Additional Complaint(s): Patient is a 38 y/o female with no significant PMHx who reports earlier today she tripped and fell onto her left wrist. Patient complains of left wrist pain. Patient denies numbness or tingling. PCP: None Provided Past Medical History Reviewed: Historical Data, Nursing Documentation, Vital Signs Vital Signs: Last Vital Signs Temp 98.6 F 01/24/19 12:43 Pulse 90 01/24/19 12:43 Resp 18 01/24/19 12:43 BP 112/69 01/24/19 12:43 Pulse Ox 99 01/24/19 12:43 - Medical History PMH: No Chronic Diseases - Surgical History Surgical History: (2) - Family History Family History: States: Unknown Family Hx - Home Medications Home Medications: Ambulatory Orders Medication Instructions Recorded Cyclobenzaprine [Cyclobenzaprine 10 mg PO TID PRN #20 tab 07/07/17 HCl] Naproxen [Naprosyn] 500 mg PO BID #20 tab 07/07/17 Cyclobenzaprine [Cyclobenzaprine 10 mg PO TID #20 tab 11/19/17 HCl] Ibuprofen [Motrin] 600 mg PO Q6 #20 tab 11/19/17 oxyCODONE/Acetaminophen [Percocet 1 ea PO Q6 PRN #5 tab 11/19/17 5/325 mg Tab] Cyclobenzaprine [Cyclobenzaprine 10 mg PO TID PRN #20 tab 03/09/18 HCl] Naproxen [Naprosyn] 500 mg PO BID #20 tab 03/09/18 Albuterol HFA [Ventolin HFA 90 2 puff IH [id number] #1 inh 06/22/18 mcg/actuation (8 g)] Docusate Sodium [Colace] 100 mg PO BID #60 capsule 06/22/18 Ferrous Sulfate 325 mg PO BID #60 tablet 06/22/18 Amoxicillin/Clavulanate [Augmentin 1 tab PO BID #20 tab 08/02/18 875 MG-125 MG] oxyCODONE/Acetaminophen [Percocet 1 ea PO Q6H PRN #10 tab 08/02/18 5/325 mg Tab] Cyclobenzaprine [Cyclobenzaprine 10 mg PO Q8 PRN #12 tab 09/22/18 HCl] Naproxen 500 mg PO BID PRN #20 tab 09/22/18 Naproxen 500 mg PO BID PRN #20 tab 01/06/19 - Allergies Allergies/Adverse Reactions: Allergies Allergy/AdvReac Type Severity Reaction Status Date / Time shrimp Allergy RASH Verified 01/24/19 12:43 Review of Systems ROS Statement: Except As Marked, All Systems Reviewed And Found Negative Musculoskeletal: Positive for: Other (left wrist pain) Neurological: Negative for: Numbness (or tingling) Physical Exam - Reviewed Nursing Documentation Reviewed: Yes Vital Signs Reviewed: Yes - Physical Exam Appears: Positive for: No Acute Distress Head Exam: Positive for: ATRAUMATIC, NORMAL INSPECTION, NORMOCEPHALIC Pulses-Radial (L): 2+ Pulses-Radial (R): 2+ Extremity: Positive for: Tenderness (minimally to left wrist), Capillary Refill (less than 2 seconds). Negative for: Normal ROM (limited ROM of left wrist secondary to pain), Deformity, Swelling Neurological/Psych: Positive for: Alert, Oriented (x3) - ECG O2 Sat by Pulse Oximetry: 99 (RA) Pulse Ox Interpretation: Normal - Radiology X-Ray: Interpreted by Me (Wrist x-ray) X-Ray Interpretation: No Acute Disease - Progress ED Course And Treament: Wrist immobilized in volar wrist splint applied by PA. Advised to f/u with ortho for further evaluation. Medical Decision Making Medical Decision Making: Time: 1251 Impression: Left Wrist Injury Plan: Motrin 600 mg PO Wrist, Left 3 Views [Rad] Scribe Attestation: Documented by Rk Oviedo, acting as a scribe Francesco Newman PA-C. Provider Scribe Attestation: All medical record entries made by the Scribe were at my direction and personally dictated by me. I have reviewed the chart and agree that the record accurately reflects my personal performance of the history, physical exam, medical decision making, and the department course for this patient. I have also personally directed, reviewed, and agree with the discharge instructions and disposition. Disposition - Clinical Impression Clinical Impression: Wrist sprain - Patient ED Disposition Is Patient to be Admitted: No - Disposition Referrals: [facility] [Outside] Saqib Troy III, MD [Staff Provider] - Disposition: Routine/Home Disposition Time: 13:50 Condition: STABLE Additional Instructions: FOLLOW UP WITH PMD FOR FURTHER EVALUATION RETURN TO ED IMMEDIATELY IF SYMPTOMS WORSEN ALEX ORTIZ, thank you for letting us take care of you today. Your provider was Allen Carpio MD and you were treated for FALL:LT WRIST PAIN. The emergency medical care you received today was directed at your acute symptoms. If you were prescribed any medication, please fill it and take as directed. It may take several days for your symptoms to resolve. Return to the Emergency Department if your symptoms worsen, do not improve, or if you have any other problems. Please contact your doctor or call one of the physicians/clinics you have been referred to that are listed on the Patient Visit Information form that is included in your discharge packet. Bring any paperwork you were given at discharge with you along with any medications you are taking to your follow up visit. Our treatment cannot replace ongoing medical care by a primary care provider outside of the emergency department. Thank you for allowing the [employer] team to be part of your care today. If you had an X-Ray or CT scan: A Radiologist will review the ED reading if any change in treatment is needed we will contact you. If you had a blood, urine, or wound culture: It will take several days for the results, if any change in treatment is needed we will contact you. If you had an STI test: It will take 48 hours for the results. Please call after 1 week if you have not heard back. Instructions: Wrist Sprain (DC) Forms: [employer] (Belgian), [facility] ED School/Work Excuse
--- NOTE | 2019-01-24 14:34 | RAD ---
Date of service: 01/24/2019 PROCEDURE: Left Wrist Radiographs. HISTORY: Trauma COMPARISON: Comparison made with prior radiographs of the left wrist 01/13/2019. TECHNIQUE: 4 views obtained. FINDINGS: BONES: Normal. No fracture. JOINTS: Normal. No dislocation. SOFT TISSUES: Normal. OTHER FINDINGS: None. IMPRESSION: Normal left wrist radiographs.
== END 2019-01-24 13:56 | disposition home or self-care (01) ==
LOC: H.ER 12:28
DX: S69.92XA Unspecified injury of left wrist, hand and finger(s), initial encounter (principal); W01.0XXA Fall on same level from slipping, tripping and stumbling without subsequent striking against object, initial encounter